=== PATIENT | female | born 1995 | race Caucasian/White ===

== ENCOUNTER 2017-05-11 17:03 | Emergency (ER) | payer OTHER ==
[~2017-05-11] VITALS: Ht 157.5 cm; Wt 70.4 kg
[~2017-05-11 17:03] MED LIST: DOCU50CA7 PO; ONDA4TAB6 PO
[2017-05-11 17:12] VITALS: BP 112/79; PULSE 107; RESP 16; O2SAT 98
--- NOTE | 2017-05-11 18:16 | ED.REPORT ---
HPI-Abd Pain F Under 40 Date of Service May 11, 2017 ED Provider: Joyce Hyde History of Present Illness: 21-year-old female here for abdominal pain. She has been having this abdominal pain intermittently for about a year. It has never been severe enough to bring her in. Today the pain was more severe, it is always periumbilical. She had some low back pain that was severe as well. Both areas of pain have calmed down since arrival. Her belly pain as a 5 out of 10 at this point. She had some nausea, lots of diarrhea and vomited one time. She is able to eat and drink at this point. sHe noted that after eating greasy food her belly pain increases and she did have a frozen pizza and a soda before her pain started today. She had a 1 month ago. The pain is not over her incision. She still has her appendix. She has had no fever. No urinary pain no vaginal discharge or issues. She has been sexually active and not on control. Nursing Notes Stated Complaint: BACK PAIN/NAUSEA Chief Complaint: Female Abdominal Pain Nursing Notes Reviewed: Yes Allergies: Coded Allergies: No Known Allergies (Verified Allergy, Unknown, 12/09/15) Scheduled PRN Docusate Sodium (Docusate Sodium) 50 Mg Capsule 50 MG PO BID PRN PRN For Constipation Ondansetron (Zofran) 4 Mg Tablet 4 MG PO Q4H PRN PRN For Nausea General Time Seen by MD: 17:55 Chief Complaint Abdominal pain Hx Obtained From: Patient Arrived By: Walk-in Sudden in Onset?: No Onset Occurred: 5 - 8 hours ago Context of Onset: Eating Symptom Duration: Waxes and wanes Location: : Periumbilical Quality: Sharp Severity: Current: Pain level 5 out of 10 Severity: Maximum: Pain level 7 out of 10 Recent Healthcare: No recent doctor visit Similar Sx Previous: Yes Past Medical History Past Medical History Preecclampsia at 37 weeks 03/2017 Past Surgical History Smoking History Never Smoker Social History Alcohol Use: Denies alcohol use Drug Use: Denies drug use Ambulatory Status Independent Review of Systems Constitutional: Denies: Fever Cardiovascular: Denies: Chest pain GI: Reports: Abdominal pain, Diarrhea, Nausea, Vomiting Complete sys rev & neg: except as marked. Physical Exam Initial Vital Signs Vital Signs (First) Date Time Temp Pulse Resp B/P Pulse Ox O2 Delivery O2 Flow Rate FiO2 05/11/17 17:12 36.9 107 16 112/79 98 Room Air Initial VS: Reviewed, Vital signs normal General/Constitutional: Awake, Alert, No acute distress, Well appearing Respiratory / Chest: Breath sounds NL, Breath sounds = bilat, No respiratory distress, No rales, No rhonchi, No wheezing Cardiovascular: Heart rate NL, Regular rhythm, Heart sounds NL, Peripheral circulation NL Abdomen: Soft, McBurney's non-tender, No guarding, No rebound, BS normoactive, No distention, No hernia, No palpable mass Tenderness/Guarding/Rebound: Positive: Tender RLQ... (Mild), Tender periumbilical, Negative: Tender flank L, Tender flank R, Tender suprapubic Back: Atraumatic, Inspection NL, Full range of motion, No midline vertebral tend Flank / Spine / Paraspinal: Positive: Lumbar paraspinal tend... (Mid) Head / Eyes: Normocephalic, PERRL Skin: Atraumatic, Color NL, No rash Interpretation & Diagnostics Lab Results Interpretation Result Diagram: 05/11/17 1803 05/11/17 1803 Test 05/11/17 18:00 05/11/17 18:03 Urine Color Yellow (YELLOW) Urine Appearance Hazy (CLEAR,HAZY) Urine pH 5.5 (5.0-8.0) Urine Specific [place] 1.030 (1.003-1.035) Urine Protein Negativemg/dL (NEG,TRACE) Urine Glucose (UA) Negativemg/dL (NEGATIVE) Urine Ketones Negativemg/dL (NEGATIVE) Urine Occult Blood Large (NEGATIVE) Urine Nitrite Negative (NEGATIVE) Urine Bilirubin Negative (NEGATIVE) Urine Urobilinogen Normalmg/dL (NORMAL) Urine Leukocyte Esterase Negative (NEGATIVE) Urine RBC 11-50/hpf (0-2) Urine WBC 0-5/hpf (0-5) Urine Epithelial Cells Moderate/hpf (NONE-MOD) Urine Crystals None seen (NONE SEEN) Urine Bacteria Few/hpf (NONE-FEW) Urine Hyaline Casts None/lpf (NONE) Urine Granular Casts None seen (NONE SEEN) Urine Waxy Casts None seen (NONE SEEN) Urine Red Blood Cell Casts None seen (NONE SEEN) Urine White Blood Cell Casts None seen (NONE SEEN) Urine Mucus Present (None Seen) Urine Trichomonas None seen (NONE SEEN) Urine Yeast None (NONE SEEN) Urinalysis Comment None Hold Urine Received (Received) White Blood Count 12.0th/mm3 (3.8-10.1) Red Blood Count 4.63mil/mm3 (3.90-5.20) Hemoglobin 11.2g/dL (12.0-15.6) Hematocrit 36.5% (35.0-46.0) Mean Corpuscular Volume 78.8fL (81-100) Mean Corpuscular Hemoglobin 24.2pg (27.0-35.0) Mean Corpuscular Hemoglobin Concent 30.7% (32.0-37.0) Red Cell Distribution Width 14.7% (12.3-15.4) Platelet Count 247bil/L (150-400) Neutrophils (%) (Auto) 85.4% (40-74) Lymphocytes (%) (Auto) 9.8% (14-46) Monocytes (%) (Auto) 2.8% (4-12) Eosinophils (%) (Auto) 1.6% (0-5) Basophils (%) (Auto) 0.1% (0-3) Sodium Level 139mEq/L (134-144) Potassium Level 4.1mEq/L (3.5-5.2) Chloride Level 102mEq/L (97-108) Carbon Dioxide Level 21mmol/L (18-29) Blood Urea Nitrogen 12mg/dL (6-20) Creatinine 0.55mg/dL (0.57-1.00) Estimat Glomerular Filtration Rate 200mL/min (>59) Glucose Level 85mg/dL (60-99) Calcium Level 9.0mg/dL (8.5-10.1) Magnesium Level 1.6mg/dL (1.6-2.6) Total Bilirubin 0.4mg/dL (0.0-1.2) Aspartate Amino Transf (AST/SGOT) 16U/L (0-50) Alanine Aminotransferase (ALT/SGPT) 14U/L (0-32) Alkaline Phosphatase 99U/L (25-150) Total Protein 7.5g/dL (6.4-8.4) Albumin 4.2g/dL (3.4-5.0) Lipase 14U/L (13-60) Hold Hoskins Top Tube Received (Received) Re-Eval/Medical Decision Med Decision/Clinical Course Med Decision/Clinical Course: Patient's pain in her abdomen is minimal at this time. Still periumbilical. It is a 2-3 out of 10 on the pain scale. She is not nauseous, she has not had any further diarrhea. GI cocktail did not help. We discussed reassessment in 24 hours if pain persists.pt agrees. Discussed the small possibility of appendicitis although with the amount of diarrhea she is having this does not seem likely. She will eat a light diet, non greasy foods. This is imperative as food she eats seems to upset her stomach even more Discharge & Departure Shift Change Sign-Out Laboratory Evaluation: Lab evaluation discussed Imaging Studies: Imaging discussed Procedures: Results discussed Response to Therapy: Improved Primary Impression: Periumbilical abdominal pain Additional Impression: Low back strain Encounter type: initial encounter Qualified Code: S39.012A - Strain of muscle, fascia and tendon of lower back, initial encounter Disposition: Home Discharge Condition All VS Reviewed: Yes Condition: Stable Patient Instructions: Acute Abdominal Pain (ED) Additional Instructions: Monitor belly pain. If you still have pain in 24 hours you must be seen again for reevaluation. Light diet as tolerated. No greasy foods or sodas. Follow- up with your doctor in 2 days regardless. If her pain becomes severe, you get fevers, vomiting or worsening at all please return to emergency room. You are likely Diagnosis is irritable bowel syndrome and your pain is likely dietary related but we cannot fully exclude appendicitis and that is why return is imperative. For your low back strain use Tylenol as needed and home pain meds. We discussed different ways to move her body with lifting and carrying for your new baby. Try to implement these at home. Use ice and heat alternating for pain relief as well. Referrals: [facility]CP (PCP) [facility]vising Provider for APC: Colt Wasserman MD, Linnea K ARNP May 11, 2017 18:16
[2017-05-11 18:22] LABS: BASOPHILS % (AUTO) 0.1 % (0-3); EOSINOPHILS % (AUTO) 1.6 % (0-5); MONOCYTES % (AUTO) 2.8 % (4-12); Mean Corpuscular Hemoglobin 24.2 pg (27.0-35.0); Mean Corpuscular Volume 78.8 fL (81-100); NEUTROPHILS % (AUTO) 85.4 % (40-74); Platelet Count 247 bil/L (150-400)
[2017-05-11] MEDS ORDERED: LidocaineVisc 2%:Antacid 1:1 10 mL Syringe PO ONE (18:30)
[2017-05-11 18:33] LABS: Magnesium 1.6 mg/dL (1.6-2.6)
[2017-05-11 20:20] LABS: APPEARANCE,URINE HAZY (CLEAR,HAZY); COLOR,URINE YELLOW (YELLOW); OCCULT BLOOD,URINE LARGE (NEGATIVE); PH,URINE 5.5 (5.0-8.0); UROBILINOGEN,URINE NORMAL (NORMAL)
[2017-05-11 20:37] VITALS: BP_SYST 118; BP_SYST 119; BP_DIAS 79; PULSE 96; RESP 16; RESP 20; O2SAT 96; O2SAT 98
== END 2017-05-11 20:38 | disposition home or self-care (01) ==
LOC: SED 17:03
DX: S39.012A Strain of muscle, fascia and tendon of lower back, initial encounter (principal); X50.9XXA Other and unspecified overexertion or strenuous movements or postures, initial encounter; Y93.89 Activity, other specified; Y92.89 Other specified places as the place of occurrence of the external cause; Y99.8 Other external cause status; R10.33 Periumbilical pain